=== PATIENT | female | born 1940 ===

== ENCOUNTER → 2023-08-14 10:39 | Outpatient (REF) | payer MEDICARE, BC, SELFPAY | LOC: HWRAD 10:39 | PROVIDERS: ATTENDING PHYSICIAN Internal Medicine Rheumatology; OTHER PHYSICIAN Nurse Practitioner Adult Health | DX: M81.0 Age-related osteoporosis without current pathological fracture (principal) | CPT/HCPCS: 77080 ==

== ENCOUNTER → 2024-05-05 11:31 | Outpatient (REF) | payer MEDICARE, BC, SELFPAY | LOC: HWWDC 11:31 | PROVIDERS: ATTENDING PHYSICIAN Nurse Practitioner Adult Health | DX: Z12.31 Encounter for screening mammogram for malignant neoplasm of breast (principal) | CPT/HCPCS: 77063; 77067 ==